=== PATIENT | male | born 1975 ===

== ENCOUNTER 2021-04-16 06:00 | Outpatient (RCR) | payer BC, SELFPAY | END 2021-04-17 23:59 | disposition home or self-care (01) | LOC: SOT 06:00 | PROVIDERS: PCP Family Medicine; Referring Provider Surgery Plastic and Reconstructive Surgery; Visit Provider Surgery Plastic and Reconstructive Surgery | DX: S69.92XA Unspecified injury of left wrist, hand and finger(s), initial encounter (principal); X58.XXXA Exposure to other specified factors, initial encounter | CPT/HCPCS: 97110; 97140; 97167 ==

== ENCOUNTER 2021-04-18 06:00 | Outpatient (RCR) | payer BC, SELFPAY | END 2021-05-18 23:59 | disposition home or self-care (01) | LOC: SOT 06:00 | PROVIDERS: PCP Family Medicine; Referring Provider Surgery Plastic and Reconstructive Surgery; Visit Provider Surgery Plastic and Reconstructive Surgery | DX: S69.82XD Other specified injuries of left wrist, hand and finger(s), subsequent encounter (principal); W39.XXXD Discharge of firework, subsequent encounter | CPT/HCPCS: 97035; 97110; 97140; 97530; L3923; L3925 ==

== ENCOUNTER 2021-05-19 06:00 | Outpatient (RCR) | payer BC, SELFPAY | END 2021-06-18 23:59 | disposition home or self-care (01) | LOC: SOT 06:00 | PROVIDERS: PCP Family Medicine; Referring Provider Surgery Plastic and Reconstructive Surgery; Visit Provider Surgery Plastic and Reconstructive Surgery | DX: S69.92XS Unspecified injury of left wrist, hand and finger(s), sequela (principal); W39.XXXS Discharge of firework, sequela | CPT/HCPCS: 97035; 97110; 97112; 97140 ==

== ENCOUNTER 2021-06-19 06:00 | Outpatient (RCR) | payer BC, SELFPAY | END 2021-07-10 11:08 | disposition home or self-care (01) | LOC: SOT 06:00 | PROVIDERS: PCP Family Medicine; Referring Provider Surgery Plastic and Reconstructive Surgery; Visit Provider Surgery Plastic and Reconstructive Surgery | DX: S69.92XD Unspecified injury of left wrist, hand and finger(s), subsequent encounter (principal) | CPT/HCPCS: 97035; 97110; 97140; 97530 ==